=== PATIENT | male | born 1995 | race African-American/Black ===

== ENCOUNTER 2019-02-23 17:34 | Emergency (ER) | payer BC ==
[~2019-02-23] VITALS: Ht 177.8 cm; Wt 84.9 kg
[2019-02-23 17:43] VITALS: Ht 177.8 cm; Wt 84.9 kg
[2019-02-23 18:42] LABS: BASOPHIL % 0.1 % (0-2); PLATELET COUNT 274 x10^3mcL (130-400)
[2019-02-23 18:54] LABS: ALBUMIN 3.7 g/dL (3.4-5.0); ALKALINE PHOSPHATASE 69 U/L (46-116); ALT/SGPT 18 U/L (16-63); AST/SGOT 17 U/L (15-37); BILIRUBIN TOTAL 2.11 mg/dL (0.20-1.00); CALCIUM 8.4 mg/dL (8.5-10.1); CARBON DIOXIDE 29.6 mmol/L (21-32); CHLORIDE SERUM 104 mmol/L (98-107); CREATININE SERUM 1.2 mg/dL (0.7-1.3); GFR1 > 60 mL/min; GLUCOSE SERUM 101 mg/dL (74-106); LIPASE 48 IU/L (73-393); POTASSIUM SERUM 4.8 mmol/L (3.5-5.1); SODIUM SERUM 140 mmol/L (136-145); TOTAL PROTEIN, SERUM 7.5 g/dL (6.4-8.2)
[2019-02-23 21:02] VITALS: BP 115/65
== END 2019-02-23 21:02 | disposition home or self-care (01) ==
LOC: ED 17:34
PROVIDERS: Emergency Medicine
DX: E86.0 Dehydration (principal); A08.4 Viral intestinal infection, unspecified; Z90.89 Acquired absence of other organs
CPT/HCPCS: J1885; J2405

== ENCOUNTER 2019-05-20 11:32 | Emergency (ER) | payer BC ==
[~2019-05-20] VITALS: Ht 177.8 cm; Wt 86.6 kg
[2019-05-20 11:46] VITALS: Ht 177.8 cm; Wt 86.6 kg
[2019-05-20 13:40] VITALS: BP 123/78
== END 2019-05-20 13:40 | disposition home or self-care (01) ==
LOC: ED 11:32
DX: L50.0 Allergic urticaria (principal); L25.9 Unspecified contact dermatitis, unspecified cause